=== PATIENT | male | born 1955 | race Two or more races ===

== ENCOUNTER 2018-06-27 16:07 | Emergency (ER) | payer OTHER ==
[~2018-06-27] VITALS: Ht 180.3 cm; Wt 81.6 kg
[2018-06-27] MEDS ORDERED: ASA-EC81 MG (16:32)
[2018-06-27] MEDS ORDERED: NORVASC5 MG (16:33)
[2018-06-27] MEDS ORDERED: TAMS0.4C PO (21:09)
[2018-06-27] MEDS ORDERED: KETO10TA2 PO (21:09)
== END 2018-06-27 21:45 | disposition home or self-care (01) ==
LOC: ER 16:07
DX: R10.31 Right lower quadrant pain (principal); R10.11 Right upper quadrant pain